=== PATIENT | female | born 1990 | race Caucasian/White ===

== ENCOUNTER → 2019-08-04 09:40 | Outpatient (CLI) | payer BC, SELFPAY ==
[2019-08-04 11:24] LABS: Alanine Aminotransferase 16 U/L (12-78); Albumin Level 4.1 g/dl (3.5-5.0); Albumin/Globulin Ratio 1.5 (1.1-1.8); Alkaline Phosphatase 83 U/L (38-126); Anion Gap 9.6 mEq/L (5-15); Aspartate Amino Transferase 19 U/L (14-36); Basophils % 0.6 % (0.1-2.0); Bilirubin,Total 0.3 mg/dl (0.2-1.3); Blood Urea Nitrogen 9 mg/dl (7-17); Calcium 9.6 mg/dl (8.4-10.2); Carbon Dioxide 30 mmol/L (22.0-30.0); Chloride 103 mmol/L (98-107); Eosinophils # 0.3 K/mm3 (0.0-0.4); Eosinophils % 3.6 % (0.1-12.0); Estimated Glomerular Filt Rate 84 ml/min (>60); GFR (African American) 102 ML/MIN (>60); Globulin 2.8 g/dL (1.3-3.2); Glucose 92 mg/dl (74-100); Hemoglobin 14.7 g/dL (12.2-16.2); Lymphocytes # 2.5 K/mm3 (0.7-4.5); Lymphocytes % 33.6 % (10-50); Mean Corpuscular HGB Conc 32.8 g/dL (31.8-35.4); Mean Corpuscular Hemoglobin 28.4 pg (27.0-31.2); Mean Corpuscular Volume 86.4 fl (81-99); Monocytes # 0.3 K/mm3 (0.1-1.0); Neutrophils # 4.4 K/mm3 (1.8-7.8); Neutrophils % 58.2 % (37.0-80.0); Platelet Count 290 K/mm3 (142-424); Potassium 4.6 mmoL/L (3.5-5.1); Red Cell Distribution Width 14.1 % (11.5-17.5); Sodium 138 mmol/L (136-145); Total Protein,Serum 6.9 g/dl (6.3-8.2); White Blood Count 7.5 K/mm3 (4.8-10.8)
[2019-08-04 11:54] LABS: Thyroid Stimulating Hormone 5.49 uIU/mL (0.465-4.68)
[2019-08-04 13:46] LABS: Hemoglobin A1C 5.3 % (4.0-6.0)
[2019-08-05 03:39] LABS: Iron 78 ug/dL (27-159); UIBC 291 ug/dL (131-425)
[2019-08-05 05:37] LABS: Hep A Ab, IgM Negative (Negative); Hepatitis B Core Antibody IgM Negative (Negative); Hepatitis B Surface Antigen Negative (Negative)
[2019-08-05 07:04] LABS: Hepatitis C Antibody <0.1 s/co ratio (0.0-0.9); Iron Saturation 21 % (15-55)
[2019-08-05 08:46] LABS: Vitamin D 25 Hydroxy 24.1 ng/mL (30.0-100.0)
[2019-08-05 16:05] LABS: Vitamin B12 275 pg/mL (232-1245)
== END ==
PROVIDERS: Visit Provider Nurse Practitioner Psychiatric/Mental Health
DX: Z00.00 Encounter for general adult medical examination without abnormal findings (principal); Z79.899 Other long term (current) drug therapy; R53.83 Other fatigue
CPT/HCPCS: 36415; 80053; 80074; 82607; 82652; 83036; 83540; 83550; 84443; 85025

== ENCOUNTER 2020-05-15 17:12 | Emergency (ER) | payer BC, SELFPAY ==
[2020-05-15 17:46] VITALS: BP 127/80; PULSE 66; RESP 18; TEMP 37.1; O2SAT 98; BMI 47.2
--- NOTE | 2020-05-15 17:51 | HMH.EDUTC ---
[facility] Disposition Clinical Impression: Viral syndrome, Encounter for laboratory testing for COVID-19 virus Disposition: Home, Self-Care Condition on Discharge: Good Instructions: Preventing the Spread of Coronavirus Discharge Instructions, DI for Fever (Symptom) -- Adult Additional Instructions: *Monitor Temp, Over the counter Motrin or Tylenol as directed/as needed Tylenol every 4 hours and Motrin every 6 hours (as long as your family doctor has told you that you can take it) for fever or pain. and straight to ER if unable to lower temp less than 101.0 after medication given *Warm salt water gargles may help to soothe the throat *Throat Lozenges *Warm fluids like tea with honey may help to soothe the throat *Sleep elevated *Humidifier/Vaporizer Follow up IMMEDIATELY for new or worsening symptoms or no Noticeable improvement over the next 48-72 hours. 911 for difficulty breathing or swallowing You was tested for today for COVID19 your test result should be back in the next 24-48 hours, you may call to the [facility] tomorrow to see if your test results are back however could take up to 48 hours before results are back [phone] [facility] hours are 9am-9pm You was given a handout with instructions for Self Quarantine and Self isolation for while you wait on test results and what to do if they are positive If you are positive the Health Dept will be contacting you also Referrals: Chad Galicia MD [Primary Care Provider] - As needed Forms: Work/School Release Time of Disposition: 17:57 Medical Decision Making - Marco Inquiry Pt receiving controlled substance: No Marco was queried for this patient: No Vital Signs: 05/15/20 17:46 Temperature 98.7 F Temperature Source Oral Pulse Rate [Left] 66 Respiratory Rate 18 Blood Pressure [Right Arm] 127/80 Blood Pressure Mean [Right Arm] 95 Blood Pressure Source [Right Arm] Automatic Cuff Blood Pressure Position [Right Arm] Sitting 02 Sat by Pulse Oximetry 98 Oxygen Delivery Method Room Air - Lab Data Lab results reviewed: Yes: I reviewed the patient's lab results. Orders (Tests/Meds): ORDERS Category Date Time Status Covid-19 Nasal PCR Sendout [facility] 05/15/20 17:35 Received [facility] HPI - General Stated complaint: Fever, body aches Time Seen by Provider: 05/15/20 17:52 Mode of Arrival: Ambulatory Source of Information: Patient Limitations: No Limitations Description of Symptoms (Recalled from Triage Doc. 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 due to having symptoms Patient states that she had a fever, body aches and chills States that she was tested yesterday but they called her today and said she needed to get retested her test was inconclusive so she came in to get retested and wanted to get checked for the flu - Related Data Previous Rx's Medication Instructions Recorded sertraline 100 mg tablet 100 mg PO DAILY #30 tab 04/03/20 Allergies Allergy/AdvReac Type Severity Reaction Status Date / Time No Known Allergies Allergy Unverified 08/04/19 08:50 - Worker's Comp Is this a Worker's Comp case?: No Is this an [facility] Worker's Comp?: No Is this a Denise Worker's Comp?: No H History - Hepatitis A Screen Drug use history?: No High risk sexual behaviors?: No History of sexually transmitted infection?: No Currently employed?: No Childcare worker?: No Do you have indoor plumbing?: Yes Do you have electricity?: Yes Attestation statement:: This patient has been screened for Hepatitis A risk factors. I have reviewed the patient's past me
[2020-05-15 17:53] VITALS: BP 127/80; PULSE 66; RESP 18; TEMP 37.1; O2SAT 98
[2020-05-15 17:55] LABS: UTC Influenza A Antigen Negative (Negative)
[2020-05-15 17:56] LABS: UTC Influenza B Antigen Negative (Negative)
[2020-05-17 14:07] LABS: Covid-19 Nasal PCR Sendout Lex Positive
== END 2020-05-15 18:04 | disposition home or self-care (01) ==
PROVIDERS: Emergency Provider Nurse Practitioner; PCP Emergency Medicine
DX: U07.1 COVID-19 (principal); Z87.891 Personal history of nicotine dependence
CPT/HCPCS: 87804; 99201; U0004

== ENCOUNTER → 2022-05-11 15:26 | Outpatient (CLI) | payer SELFPAY ==
[2022-05-11 17:32] LABS: HCG,Quantitative 10937 mIU/ml (0-5.42)
== END ==
LOC: LAB 15:28
PROVIDERS: Visit Provider Obstetrics & Gynecology
DX: N92.6 Irregular menstruation, unspecified (principal)
CPT/HCPCS: 36415; 84702

== ENCOUNTER → 2022-06-17 09:32 | Outpatient (CLI) | payer OTHER, SELFPAY ==
[2022-06-17 10:17] LABS: Basophils % 0.6 % (0.1-2.0); Eosinophils # 0.1 K/mm3 (0.0-0.4); Eosinophils % 1.4 % (0.1-12.0); Hematocrit 30.5 % (37.0-47.0); Hemoglobin 9.8 g/dL (12.2-16.2); Lymphocytes # 1.7 K/mm3 (0.7-4.5); Lymphocytes % 22.9 % (10-50); Mean Corpuscular HGB Conc 32.1 g/dL (31.8-35.4); Mean Corpuscular Volume 68.4 fl (81-99); Monocytes # 0.3 K/mm3 (0.1-1.0); Monocytes % 4.4 % (1.7-9.3); Neutrophils # 5.4 K/mm3 (1.8-7.8); Neutrophils % 70.7 % (37.0-80.0); Platelet Count 327 K/mm3 (142-424); Red Blood Count 4.45 M/mm3 (4.20-5.40); Red Cell Distribution Width 18.2 % (11.5-17.5); White Blood Count 7.6 K/mm3 (4.8-10.8)
[2022-06-18 08:19] LABS: HIV Screen 4th Generation wRfx Non Reactive (Non Reactive); Rubella Antibodies, IgG 4.82 index (Immune >0.99)
[2022-06-18 14:32] LABS: Rapid Plasma Reagin Ab Titer Non Reactive (NonRea<1:1)
[2022-06-24 23:14] LABS: Hepatitis B Surface Antigen NEGATIVE; Hepatitis C Antibody <0.1
== END ==
LOC: LAB 09:32 → LAB.DROPOF 19:57
PROVIDERS: PCP Obstetrics & Gynecology; Visit Provider Obstetrics & Gynecology
DX: Z34.90 Encounter for supervision of normal pregnancy, unspecified, unspecified trimester (principal)
CPT/HCPCS: 36415; 85025; 86593; 86703; 86762; 86850; 87086; 87340; 87380; G0432

== ENCOUNTER → 2022-08-19 14:37 | Outpatient (CLI) | payer OTHER, SELFPAY ==
--- NOTE | 2022-08-19 14:37 | US_ITS ---
FINAL REPORT CLINICAL HISTORY: 20 week anatomy scan FINDINGS: US PREG /MATERNAL >14WKS ODAYS This was a difficult exam. There is a single live intrauterine gestation. Presentation is breech. The cervix is closed and measures 4.3 cm. Placenta is anterior, grade 1. movement is noted. Cardiac activity is confirmed at 138 beats per minute. Three-vessel cord with satisfactory umbilical cord insertion. Four-chamber heart is noted. brain and ventricles are unremarkable. Chest and diaphragm are unremarkable. ABDOMEN: Both kidneys are unremarkable. Stomach is unremarkable. SPINE: No anomalies identified. Both arms and legs noted. AMNIOTIC FLUID: Appropriate amount. MEASUREMENTS: ULTRASOUND AGE: 19 weeks 4 days. GESTATION AGE: 20 weeks 2 days. ESTIMATED WEIGHT: 304 g GROWTH PERCENTILE: 15% LMP percentile BPD: 4.5 cm corresponding with 19 weeks 5 days. OFD: 5.7 cm corresponding with 19 weeks 6 days. HC: 16.2 cm corresponding with 19 weeks 0 days. AC: 14.3 cm corresponding with 19 weeks 5 days. FL: 3.2 cm corresponding with 19 weeks 6 days. CEREBELLUM: 2.0 cm corresponding with 20 weeks 2 days. HUMERUS: 3.0 cm corresponding with 20 weeks 0 days. HC/AC: 1.13 CI: 79% FL/BPD: 70% FL/AC: 22% IMPRESSION: Single living IUP with an ultrasound age of 19 weeks 4 days. No gross anomalies noted. Reviewed, Interpreted and Dictated by Hood Cortez III, MD Transcribed by Janice Galvin Authenticated and [facility]
== END ==
PROVIDERS: PCP Obstetrics & Gynecology; Visit Provider Obstetrics & Gynecology
DX: Z34.90 Encounter for supervision of normal pregnancy, unspecified, unspecified trimester (principal); Z3A.20 20 weeks gestation of pregnancy
CPT/HCPCS: 76811

== ENCOUNTER 2022-09-04 16:37 | Outpatient (CLI) | payer OTHER, SELFPAY ==
[2022-09-04 17:19] VITALS: BMI 41.8
[2022-09-04 17:36] VITALS: BP 107/57; PULSE 84; RESP 17; TEMP 36.8; O2SAT 97; BMI 41.8
[2022-09-04 17:56] LABS: Microscopic, Urine URINE MICROSCOPIC (MICROSCOPIC)
[2022-09-04 17:58] LABS: Chloride 107 mmol/L (98-107); Potassium 3.8 mmoL/L (3.5-5.1); Sodium 135 mmol/L (136-145)
[2022-09-04 17:59] LABS: Appearance,Urine CLEAR (Clear); Bilirubin,Urine 1+ (Negative); Blood, Urine Negative (Negative); Color,Urine YELLOW (Yellow); Glucose,Urine (UA) Negative (Negative); Ketones,Urine TRACE (Negative); Leukocyte Esterase,Urine Negative (Negative); Nitrate,Urine Negative (Negative); Protein,Urine TRACE (Negative); Specific Gravity, Urine >= 1.030 (1.005-1.030)
[2022-09-04 18:00] LABS: Basophils % 0.4 % (0.1-2.0); Blood Urea Nitrogen 9 mg/dl (7-17); Creatinine Clearance Estimated 135 mL/min (50-200); Eosinophils # 0.1 K/mm3 (0.0-0.4); Estimated Glomerular Filt Rate 115 ml/min (>60); GFR (African American) 139 ML/MIN (>60); Hematocrit 29.7 % (37.0-47.0); Hemoglobin 9.8 g/dL (12.2-16.2); Lymphocytes # 1.6 K/mm3 (0.7-4.5); Mean Corpuscular HGB Conc 33.2 g/dL (31.8-35.4); Mean Corpuscular Volume 72.4 fl (81-99); Mean Platelet Volume 9.3 fl (7.4-10.4); Monocytes # 0.5 K/mm3 (0.1-1.0); Neutrophils # 7.1 K/mm3 (1.8-7.8); Neutrophils % 76.6 % (37.0-80.0); Platelet Count 302 K/mm3 (142-424); Red Cell Distribution Width 18.3 % (11.5-17.5); White Blood Count 9.2 K/mm3 (4.8-10.8)
[2022-09-04 18:01] LABS: Alanine Aminotransferase 14 U/L (12-78); Albumin Level 3.4 g/dl (3.5-5.0); Albumin/Globulin Ratio 1.1 (1.1-1.8); Alkaline Phosphatase 68 U/L (38-126); Anion Gap 8.8 mEq/L (5-15); Aspartate Amino Transferase 22 U/L (14-36); Bilirubin,Total 0.2 mg/dl (0.2-1.3); Calcium 8.6 mg/dl (8.4-10.2); Carbon Dioxide 23 mmol/L (22.0-30.0); Globulin 3.1 g/dL (1.3-3.2); Glucose 86 mg/dl (74-100); Total Protein,Serum 6.5 g/dl (6.3-8.2)
[2022-09-04 18:10] LABS: Barbiturates Screen,Urine Negative ng/ml (<200)
[2022-09-04 18:11] LABS: Amphetamine/Metha Screen,Urine Negative ng/ml (<1000); Benzodiazepines Screen,Urine Negative ng/ml (<200)
[2022-09-04 18:12] LABS: Cocaine Screen,Urine Negative ng/ml (<300)
[2022-09-04 18:13] LABS: Cannabinoid Screen,Urine Negative ng/ml (<50); Methadone Screen,Urine Negative ng/ml (<300)
[2022-09-04 18:14] LABS: Bacteria,Urine 1+ /lpf; Opiate Screen,Urine Negative ng/ml (<300); Sperm,Urine OCC /lpf
[2022-09-04 18:15] LABS: Phencyclidine Screen,Urine Negative ng/ml (<25)
== END 2022-09-04 18:16 | disposition home or self-care (01) ==
LOC: OBOUT 16:42 → OB 17:03
PROVIDERS: Visit Provider Obstetrics & Gynecology
DX: O26.892 Other specified pregnancy related conditions, second trimester (principal); Z3A.22 22 weeks gestation of pregnancy; R42 Dizziness and giddiness; R06.02 Shortness of breath
CPT/HCPCS: 36415; 80053; 80305; 81001; 85025; G0463

== ENCOUNTER 2022-09-17 14:04 | Outpatient (CLI) | payer OTHER, SELFPAY ==
[2022-09-17 14:25] VITALS: BP 131/75; PULSE 82; RESP 16; TEMP 36.3; O2SAT 100
[2022-09-17 14:59] VITALS: BP 118/75; PULSE 76; RESP 16; O2SAT 100
[2022-09-17 15:05] VITALS: BP 114/74; PULSE 75; RESP 16; TEMP 36.3; O2SAT 100
== END 2022-09-17 15:20 | disposition home or self-care (01) ==
LOC: INF 14:04
PROVIDERS: PCP Obstetrics & Gynecology; Visit Provider Obstetrics & Gynecology
DX: D64.9 Anemia, unspecified (principal)
CPT/HCPCS: 96365; J1756

== ENCOUNTER → 2022-09-21 15:50 | Outpatient (CLI) | payer OTHER, SELFPAY | LOC: LAB.DROPOF 09-22 06:23 | PROVIDERS: PCP Student in an Organized Health Care Education/Training Program; Visit Provider Student in an Organized Health Care Education/Training Program | DX: J02.9 Acute pharyngitis, unspecified (principal); B95.0 Streptococcus, group A, as the cause of diseases classified elsewhere | CPT/HCPCS: 87070; 87077; 87186 ==

== ENCOUNTER 2022-09-24 13:57 | Outpatient (CLI) | payer OTHER, SELFPAY ==
[2022-09-24 14:30] VITALS: BP 109/60; PULSE 75; RESP 16; O2SAT 99
[2022-09-24 15:00] VITALS: BP 100/56; PULSE 69; RESP 16
== END 2022-09-24 15:15 | disposition home or self-care (01) ==
LOC: INF 13:58
PROVIDERS: PCP Obstetrics & Gynecology; Visit Provider Obstetrics & Gynecology
DX: D64.9 Anemia, unspecified (principal)
CPT/HCPCS: 96365; J1756

== ENCOUNTER 2022-10-01 12:42 | Outpatient (CLI) | payer OTHER, SELFPAY ==
[2022-10-01 13:00] VITALS: BP 130/64; PULSE 78; RESP 18; O2SAT 96
[2022-10-01 13:40] VITALS: BP 105/56; PULSE 74; RESP 18
== END 2022-10-01 13:40 | disposition home or self-care (01) ==
LOC: INF 12:42
PROVIDERS: Visit Provider Obstetrics & Gynecology
DX: D64.9 Anemia, unspecified (principal)
CPT/HCPCS: 96365; J1756

== ENCOUNTER → 2022-10-20 08:24 | Outpatient (CLI) | payer OTHER, SELFPAY ==
[2022-10-20 08:52] LABS: Basophils % 0.3 % (0.1-2.0); Eosinophils # 0.1 K/mm3 (0.0-0.4); Eosinophils % 1.6 % (0.1-12.0); Hematocrit 33.4 % (37.0-47.0); Hemoglobin 11.1 g/dL (12.2-16.2); Lymphocytes # 1.8 K/mm3 (0.7-4.5); Lymphocytes % 23.6 % (10-50); Mean Corpuscular HGB Conc 33.4 g/dL (31.8-35.4); Mean Corpuscular Hemoglobin 26.9 pg (27.0-31.2); Mean Corpuscular Volume 80.4 fl (81-99); Mean Platelet Volume 8.9 fl (7.4-10.4); Monocytes # 0.3 K/mm3 (0.1-1.0); Neutrophils # 5.4 K/mm3 (1.8-7.8); Neutrophils % 70.5 % (37.0-80.0); Platelet Count 231 K/mm3 (142-424); Red Blood Count 4.15 M/mm3 (4.20-5.40); White Blood Count 7.6 K/mm3 (4.8-10.8)
[2022-10-20 09:42] LABS: Glucose,Fasting 77 mg/dl (74-100)
[2022-10-20 10:52] LABS: Glucose 1 Hour 123 mg/dL (74-100)
== END ==
PROVIDERS: Visit Provider Obstetrics & Gynecology
DX: Z34.90 Encounter for supervision of normal pregnancy, unspecified, unspecified trimester (principal); Z3A.29 29 weeks gestation of pregnancy
CPT/HCPCS: 36415; 82951; 85025

== ENCOUNTER 2022-12-13 15:54 | Inpatient (IN) | payer OTHER, SELFPAY ==
[2022-12-13 16:07] VITALS: BMI 42.3
[2022-12-13 17:19] LABS: Microscopic, Urine URINE MICROSCOPIC (MICROSCOPIC)
[2022-12-13 17:30] LABS: Appearance,Urine SL CLOUDY (Clear); Bilirubin,Urine Negative (Negative); Blood, Urine Negative (Negative); Color,Urine YELLOW (Yellow); Glucose,Urine (UA) Negative (Negative); Ketones,Urine TRACE (Negative); Leukocyte Esterase,Urine 1+ (Negative); Nitrate,Urine Negative (Negative); PH,Urine 5.5 (5.0-8.5); Protein,Urine 1+ (Negative); Specific Gravity, Urine >= 1.030 (1.005-1.030)
[2022-12-13 17:30] LABS: Basophils % 0.2 % (0.1-2.0); Eosinophils # 0.1 K/mm3 (0.0-0.4); Eosinophils % 1.5 % (0.1-12.0); Hematocrit 32.5 % (37.0-47.0); Hemoglobin 10.6 g/dL (12.2-16.2); Lymphocytes % 20.7 % (10-50); Mean Corpuscular HGB Conc 32.8 g/dL (31.8-35.4); Mean Corpuscular Hemoglobin 26.7 pg (27.0-31.2); Mean Corpuscular Volume 81.5 fl (81-99); Mean Platelet Volume 8.9 fl (7.4-10.4); Monocytes # 0.4 K/mm3 (0.1-1.0); Monocytes % 4.7 % (1.7-9.3); Neutrophils # 6.8 K/mm3 (1.8-7.8); Neutrophils % 72.9 % (37.0-80.0); Platelet Count 289 K/mm3 (142-424); Red Blood Count 3.99 M/mm3 (4.20-5.40); Red Cell Distribution Width 17.4 % (11.5-17.5); White Blood Count 9.4 K/mm3 (4.8-10.8)
[2022-12-13 17:39] LABS: Coronavirus 19, PCR Not Detected (NotDetected); Influenza A, PCR Not Detected (NotDetected); Influenza B, PCR Not Detected (NotDetected)
[2022-12-13 17:42] LABS: Barbiturates Screen,Urine Negative ng/ml (<200)
[2022-12-13 17:43] LABS: Benzodiazepines Screen,Urine Negative ng/ml (<200)
[2022-12-13 17:44] LABS: Amphetamine/Metha Screen,Urine Negative ng/ml (<1000); Cocaine Screen,Urine Negative ng/ml (<300)
[2022-12-13 17:45] LABS: Cannabinoid Screen,Urine Negative ng/ml (<50); Methadone Screen,Urine Negative ng/ml (<300)
[2022-12-13 17:46] LABS: Opiate Screen,Urine Negative ng/ml (<300)
[2022-12-13 17:47] LABS: Phencyclidine Screen,Urine Negative ng/ml (<25)
[2022-12-13 17:50] VITALS: BP 103/51; PULSE 81; RESP 18; TEMP 36.8; O2SAT 99; BMI 42.3
[2022-12-13 18:01] LABS: Bacteria,Urine 4+ /lpf; RBC,Urine Occasional #/hpf (0-3)
[2022-12-13 19:35] VITALS: BP 105/62; PULSE 67; RESP 18; TEMP 36.8; O2SAT 100
[2022-12-14] VITALS (10 sets, daily range): BP systolic 97–151; BP diastolic 60–90; PULSE 54–76; RESP 10–18; TEMP 36.1–37; O2SAT 93–100
--- NOTE | 2022-12-14 07:14 | EXP.OB.APHP ---
OB - H&P: HPI Antepartum History of Present Illness Chief complaint: Scheduled induction of labor, IUGR History of present illness: Ms Génesis Ho is a 32 yo at 37w0d who presents to [facility] Labor [facility] Delivery for scheduled induction of labor secondary to IUGR. Ultrasound with PDC on 12/07/22 demonstrated AC < 1%ile. S/D ratio normal, EFW 7 %ile, BPP 8/8, S=D, normal amniotic fluid. Baby is very active. She has had good care. History of Present Criteria for establishing EDC:: LMP confirmed by 1st trimester US care: good care Ultrasounds: normal mid trimester US Obstetrical complications: growth restriction Medical complications: none Labs Blood type: O (+) positive Rubella: immune RPR/VDRL: nonreactive GBS status: unknown HBsAG: negative [facility] Disclaimer: The information contained in this section may have been updated after the patient was seen, as this information can be updated by other users. Medical History (Updated 12/14/22 @ 07:21 by Mine Juarez DO) 37 weeks gestation of Anxiety Asymmetric IUGR affecting , antepartum Encounter for induction of labor GERD (gastroesophageal reflux disease) Maternal obesity affecting , antepartum Morbid obesity with BMI of 40.0-44.9, adult Surgical History H/O gastric sleeve History of appendectomy History of cholecystectomy Family History Other Cancer Coronary artery disease Diabetes Hyperlipidemia Hypertension Social History Smoking Status: Former smoker second hand exposure: No alcohol intake: never substance use type: denies use current occupational status: employed Travel in the last 8 weeks: None number of children: 2 caffeine: Yes Review of Systems Review of Systems Review of systems:: pertinent systems reviewed and negative unless documented below Meds Home Medications and Allergies Home Medications Medication Instructions Recorded Confirmed Type omeprazole 20 mg capsule,delayed 20 mg PO DAILY Acid Reflux 06/17/22 12/13/22 History release ferrous sulfate 325 mg (65 mg 325 mg PO DAILY Supplement 09/17/22 12/13/22 History iron) tablet,delayed release vit no.95-ferrous 1 tab PO DAILY Supplement 12/14/22 12/14/22 History fumarate 28 mg-folic acid 800 mcg tablet () New Prescriptions to Start Prescriptions: Allergies Allergy/AdvReac Type Severity Reaction Status Date / Time No Known Allergies Allergy Verified 12/10/22 13:19 OB - H&P: Exam Physical Exam Vital signs: Temp Pulse Resp BP Pulse Ox 97.6 F 54 L 18 110/69 100 12/14/22 04:05 12/14/22 04:05 12/14/22 04:05 12/14/22 04:05 12/13/22 19:35 Constitutional no acute distress Routine HEENT Exam Head: Present normocephalic and atraumatic Eye: Absent conjunctivae pink ENT: Present mucous membranes moist Routine Neck Exam Present full ROM Routine Respiratory Exam Present CTA bilaterally and normal respiratory effort Routine Cardiovascular Exam Present RRR Routine Abdominal Exam Present soft (Gravid); Absent tenderness Routine Rectal Exam Patient deferred: visual exam Routine Exam Patient deferred: external exam Routine Extremities Exam Present full ROM; Absent edema or calf tenderness Routine Neurological Exam Present alert, oriented X3 and moving all extremities Routine Psychiatric Exam Present normal affect and cooperative Detailed Labor and Delivery Exam Dilation (cm): 0 Effacement (%): 50 Cervix position: anterior station: -3 Consistency: soft Membranes: intact Baseline heart rate: 135 monitor accelerations: Present monitor decelerations: None shelter variability: Moderate (11-25) OB - Results Labs Labs: Short CBC 12/13/22 Range
--- NOTE | 2022-12-14 07:16 | P.CONPHA_ITS ---
Pharmacy Intervention Comments: MEDICATION RECONCILIATION COMPLETED ON PATIENT USING EXTERNAL FILL HISTORY FROM PHARMACY AND LIST FROM CABINET WORKER OFFICE. -ROSS SAHUD
--- NOTE | 2022-12-14 07:16 | HMH.PHAINT1 ---
Pharmacy Intervention Comments: MEDICATION RECONCILIATION COMPLETED ON PATIENT USING EXTERNAL FILL HISTORY FROM PHARMACY AND LIST FROM BED SPRING MAKER OFFICE. -ROSS SAHUD
[2022-12-14 11:15] LABS: Cord Blood PH 7.32 (7.35-7.45)
--- NOTE | 2022-12-14 12:01 | EXP.OP.NOTE ---
Date of procedure: 12/14/22 Pre-op Diagnosis:: 1. IUP at 37 weeks 0 days 2. IUGR 3. Maternal obestiy 4. History of gastric sleeve 5. Anxiety 6. Nonreassuring heart tones remote from delivery Post-op Diagnosis:: 1. IUP at 37 weeks 0 days 2. IUGR 3. Maternal obestiy 4. History of gastric sleeve 5. Anxiety 6. Nonreassuring heart tones remote from delivery 7. malpresentation Procedure performed:: Primary Low Transverse Section Surgeon:: Mine Juarez DO [employer] Professional(s):: [employer] TELEGRAPHIC TYPEWRITER INSTALLER:: Jesse Leroy Anesthesia: GETA Estimated blood loss (mL): 1,000 Clinical Note:: Ms Génesis Ho is a 32 yo at 37w0d who presents to [facility] for scheduled induction of labor secondary to IUGR. Ultrasound with PDC on 12/07/22 demonstrated AC < 1%ile. S/D ratio normal, EFW 7 %ile, BPP 8/8, S=D, normal amniotic fluid. Baby is very active. She has had good care. Patient received Cervidil on 12/13/22 for induction of labor. Cervidil was removed around 0400 on 12/14/22. Cervix was closed, thick, soft, mid position. Cytotec was placed vaginally at 0745. NST reactive, category 1. At 0938, recurrent decelerations noted. Contractions were not tracing well. Intrauterine resuscitation was performed with maternal position changes and IV fluids. Cervical exam unchanged. At 1005 she had a deceleration down to 90 bpm lasting 40 seconds. Then heart tones were broken with some heart tones in the 70's. Decision was made to proceed with for non reassuring heart tones remote from delivery. Cervical exam closed, unchanged. Operative findings:: 1. Live female baby weighing 5 lb 7 oz, APGARs 7 (1 min), 9 (5 min), EBL 1000 cc 2. malpresentation with arm extended by head 3. Grossly normal appearing uterus, bilateral fallopian tubes and bilateral ovaries Operative note:: The risks, benefits and alternatives of the procedure were reviewed with the patient. Informed consent was obtained. Patient was taken to the operating room. The patient received 2 grams of Ancef preoperatively. Patient was placed in dorsal supine position with a leftward tilt. SCDs in place. Curran catheter was placed and draining clear urine prior to the start of the procedure. heart tones were obtained. Patient was then prepped and draped in normal sterile fashion. Patient was then placed under general anesthesia. A Pfannenstiel skin incision was made 2 cm above pubic symphysis. This was carried through to underlying layer of fascia. Fascia was incised in midline, extended laterally with Villafana scissors. Superior aspect of fascial incision was grasped with two Lilly clamps, elevated up, and rectus muscle dissected off bluntly and sharply with Villafana scissors. The retcus muscle was then in the midline and the peritoneum was entered bluntly with a digit. Peritoneal incision was then extended superiorly and inferiorly with good visualization of the bladder. Stalin retractor was inserted. The lower uterine segment was incised in a transverse fashion. Clear amniotic fluid was noted. Left arm presented through uterine incision. Arm was swept caudad along baby's chest and head was delivered without difficulty. Remainder of body was delivered without difficulty. Mouth and nares were bulb suctioned. The umbilical cord was clamped and cut. The was handed to awaiting pediatric staff in stable condition. Dr. Alvarez was present. Apgars were 7(1 min), 9(5 min). Cord blood was obtained. Gentle traction on the umbilical cord and uterine fundal massage delivered the placenta. Placenta was intact. Placenta will be sent to pathology for review. Uterus was cleared of all clots and debris with a moist laparotomy sponge. Corners of the uterine incision were grasped with Allis clamps. The uterine incision was reapproximated with # 1 Vicryl suture in a running, locked stitch. Second layer of the same stitch was used to imbricate the i
--- NOTE | 2022-12-14 12:10 | EXP.ANES.CKL ---
[facility] Disclaimer: The information contained in this section may have been updated after the patient was seen, as this information can be updated by other users. Medical History 37 weeks gestation of Anxiety Asymmetric IUGR affecting , antepartum Encounter for induction of labor GERD (gastroesophageal reflux disease) Maternal obesity affecting , antepartum Morbid obesity with BMI of 40.0-44.9, adult Surgical History H/O gastric sleeve History of appendectomy History of cholecystectomy Family History Other Cancer Coronary artery disease Diabetes Hyperlipidemia Hypertension Social History Smoking Status: Former smoker second hand exposure: No alcohol intake: never substance use type: denies use current occupational status: employed Travel in the last 8 weeks: None number of children: 2 caffeine: Yes [facility] Anesthesia Checklist Patient Identification Patient Identification: Arm Band and Verbal (Name & ) Structural Data Admitted From: Inpatient Planned Operative Procedure/s: C/S Consent for Planned Operative Procedure(s) Verified: Yes NPO Status Verified Time NPO: 00:00 Chart Verification Results Verified: CBC Additional verifications Patient : Yes Airway Assessment C-Spine Mobility Assessed: Yes TMJ Mobility Assessed: Yes Dentition: Good Dentition Neurological Assessment Level of Consciousness: Awake Hx Seizures: No Numbness or tingling in extremities: No Anesthesia Plan Anesthesia Risk discussed: Yes Anesthesia Plan: Verified ASA Class: III (E) Anesthesia Type: General
--- NOTE | 2022-12-14 12:10 | EXP.ANES.I ---
[facility] Anesthesia Record Part I Anesthesia Record I Intake, IV Amount: 800 Estimated blood loss (mL): 1,000 Urine output (mL): 25 Blood Pressure: 97/72 SaO2: 93 Pulse Rate: 73 Respiratory Rate: 10 Temperature: 97 F Patient is:: Awake Stable to PACU at:: 12:10
--- NOTE | 2022-12-14 13:17 | SUR.OPER ---
1108- viable infant female delivered at this time. 1113- cord pH of 7.32 reported to MD Juarez at this time, NNO 1115- Consueloechalexys, AUTOMOBILE PAINTER gave pt 0.2mg of Methergene IM 1124- Huy, AUTOMOBILE PAINTER gave pt IV TXA at this time TAP BLOCK: t/o 1140 start 1141 end 1200
--- NOTE | 2022-12-14 13:54 | EXP.ANES.II ---
[facility] Anesthesia Record Part II Anesthesia Record Part II Discharge Time: 12:40 Destination: Obstetric PACU nurse assessment reviewed?: Yes Patient Condition:: Good Anesthesia Complications:: None Swallowing reflex intact?: Yes Cyanosis?: No Blood Pressure: 137/86 Pulse Rate: 74 Temperature: 97 F Mental Status: Alert & Oriented Pain level:: 0 Nausea and/or vomitting:: None Intake, IV Amount: 0
[2022-12-15 00:23] VITALS: BP 115/67; PULSE 51; RESP 18; TEMP 36.9
[2022-12-15 08:02] LABS: Basophils % 0.3 % (0.1-2.0); Eosinophils # 0.1 K/mm3 (0.0-0.4); Eosinophils % 1.4 % (0.1-12.0); Hemoglobin 10.3 g/dL (12.2-16.2); Lymphocytes # 2.3 K/mm3 (0.7-4.5); Lymphocytes % 21.6 % (10-50); Mean Corpuscular HGB Conc 31.4 g/dL (31.8-35.4); Mean Corpuscular Hemoglobin 25.9 pg (27.0-31.2); Mean Corpuscular Volume 82.5 fl (81-99); Mean Platelet Volume 9.3 fl (7.4-10.4); Monocytes # 0.6 K/mm3 (0.1-1.0); Monocytes % 5.3 % (1.7-9.3); Neutrophils # 7.5 K/mm3 (1.8-7.8); Neutrophils % 71.4 % (37.0-80.0); Platelet Count 258 K/mm3 (142-424); Red Cell Distribution Width 17.4 % (11.5-17.5); White Blood Count 10.5 K/mm3 (4.8-10.8)
--- NOTE | 2022-12-15 10:08 | EXP.DC.SUM ---
General Admission date:: 12/13/22 Discharge date: 12/15/22 HPI HPI HPI: POD # 1 s/p PLTCS Feeling well. Ambulating well ad ayana. Pain controlled. She is formula feeding. Light lochia. Voiding without difficulty and passing flatus. Tolerating regular diet. No chest pain or shortness of breath. Denies fever/chills. Denies headaches, vision changes or swelling. Hospital Course Hospital Course Hospital Course: Ms Génesis Ho is a 32 yo at 37w0d who presented to [facility] Delivery for scheduled induction of labor secondary to IUGR. Ultrasound with PDC on 12/07/22 demonstrated AC < 1%ile. S/D ratio normal, EFW 7 %ile, BPP 8/8, S=D, normal amniotic fluid. Baby is very active. She has had good care. Patient received Cervidil on 12/13/22 for induction of labor. Cervidil was removed around 0400 on 12/14/22. Cervix was closed, thick, soft, mid position. Cytotec was placed vaginally at 0745. NST reactive, category 1. At 0938, recurrent decelerations noted. Contractions were not tracing well. Intrauterine resuscitation was performed with maternal position changes and IV fluids. Cervical exam unchanged. At 1005 she had a deceleration down to 90 bpm lasting 40 seconds. Then heart tones were broken with some heart tones in the 70's. Decision was made to proceed with for non reassuring heart tones remote from delivery. Cervical exam closed, unchanged. She underwent primary on 12/14/22. She delivered a live female (baby's name is Abigail) weiging 5 lb 7 oz. APGARs 7, 9. EBL 1000 mL. She did well postoperatively. Pain controlled. Light lochia. Formula feeding. Voiding without difficulty and passing flatus. Ambulating well ad ayana. Vital signs stable, afebrile. Heart regular rate and rhythm. Lungs clear to auscultation. Abdomen soft, nontender. She received Venofer 200 mg IV x 1 dose for acute blood loss anemia. No lower extremity edema. Patient requested to be discharged POD #1. Exam Data for Last 24 hours Vital signs and Labs for Last 24 Hours: Temp Pulse Resp BP Pulse Ox 98.4 F 51 L 18 115/67 97 12/15/22 00:23 12/15/22 00:23 12/15/22 00:23 12/15/22 00:23 12/14/22 19:48 Laboratory Results - last 24 hr 12/14/22 11:13: Cord ABG pH 7.32 L 12/15/22 07:31: WBC 10.5, RBC 4.00 L, Hgb 10.3 L, Hct 33.0 L, MCV 82.5, MCH 25.9 L, MCHC 31.4 L, RDW 17.4, Plt Count 258, MPV 9.3, Neut % (Auto) 71.4, Lymph % (Auto) 21.6, [place] % (Auto) 5.3, Eos % (Auto) 1.4, Baso % (Auto) 0.3, Neut # (Auto) 7.5, Lymph # (Auto) 2.3, [place] # (Auto) 0.6, Eos # (Auto) 0.1, Baso # (Auto) 0.0 I & O for Last 24 hours: Intake & Output 12/12/22 12/13/22 12/14/22 12/15/22 23:59 23:59 23:59 23:59 Intake Total 800 / 800 Balance 800 / 800 Weight 278 lb Microbiology Reports for the Last 24 Hours: Microbiology 12/13/22 16:00 Urine,Clean Catch Urine Culture - Preliminary NO GROWTH AFTER 24 HOURS Constitutional Constitutional: no acute distress *Routine HEENT Exam Head: Present normocephalic and atraumatic Eye: Absent conjunctivae pink ENT: Present mucous membranes moist and dentition normal *Routine Neck Exam Neck: Present full ROM *Routine Respiratory Exam Respiratory: Present CTA bilaterally and normal respiratory effort *Routine Cardiovascular Exam Cardiovascular: Present RRR *Routine Abdominal Exam Abdominal: Present soft and normoactive bowel sounds; Absent tenderness or distended Comments: Uterine fundus firm and below umbilicus; Pfannenstiel incision clean/dry/intact, steri strips covering incision *Routine Rectal Exam Patient deferred: visual exam *Routine Exam Patient deferred: external exam *Routine Extremities Exam Extremities: Present full ROM; Absent edema or calf tenderness *Routine Neurological Exam Neurological: Present alert, oriented X3 and moving all extremities Routine Psychiatric Exam Psychiatric: Present normal affect and cooperative
== END 2022-12-15 14:30 | disposition home or self-care (01) | DRG 787 ==
PROVIDERS: Admitting Provider Obstetrics & Gynecology; Visit Provider Obstetrics & Gynecology
PROC: 10D00Z1 Extraction of Products of Conception, Low, Open Approach (ICD-10-PCS; principal; 2022-12-14 11:00)
DX: O36.5930 Maternal care for other known or suspected poor fetal growth, third trimester, not applicable or unspecified (principal); D62 Acute posthemorrhagic anemia; Z3A.37 37 weeks gestation of pregnancy; Z37.0 Single live birth; O99.844 Bariatric surgery status complicating childbirth; O99.344 Other mental disorders complicating childbirth; F41.9 Anxiety disorder, unspecified; O99.214 Obesity complicating childbirth; Z23 Encounter for immunization; O32.8XX0 Maternal care for other malpresentation of fetus, not applicable or unspecified; O90.81 Anemia of the puerperium
CPT/HCPCS: 59514; 36415; 59025; 80305; 81001; 82800; 85025; 86850; 87086; 87636; 88307; 94761; C9290; C9803; G0283; J0290; J0330; J0690; J1756; U0003; U0005